=== PATIENT | male | born 1975 | race Caucasian/White ===

== ENCOUNTER 2019-03-03 08:01 | Outpatient (CLI) | payer OTHER ==
--- NOTE | 2019-03-03 10:16 | ULT ---
SCROTAL ULTRASOUND: INDICATION: History of inguinal bulge. COMPARISON: None. FINDINGS: No intratesticular mass or torsion is demonstrated. The right testicle measured 4.6 x 2.3 x 2.8 cm. The left testicle measures 4.4 x 2.2 x 2.7 cm. There are tiny bilateral hydroceles. There is an ep ididymal head cyst seen on the left measuring 7 mm. A small focus of destructive-appearing calcifica tion is seen within the inferior pole of the right testicle. Within the palpable region of interest, there is a normal-appearing inguinal lymph node on the right. No suspicious abnormality is seen on the left. IMPRESSION: 1. No acute testicular mass or torsion. 2. No obvious evidence of inguinal hernia. 3. Small left epididymal head cyst. 4. Tiny bilateral hydroceles. POS: OFF
== END 2019-03-03 08:02 | disposition home or self-care (01) ==
LOC: BICULT 08:01
PROVIDERS: ATTEND Nurse Practitioner Family
DX: R19.09 Other intra-abdominal and pelvic swelling, mass and lump (principal); L72.0 Epidermal cyst; N43.3 Hydrocele, unspecified
CPT/HCPCS: 76870; 93976